=== PATIENT | female | born 1960 | race Caucasian/White ===

== ENCOUNTER 2017-12-02 11:07 | Emergency (ER) | payer OTHER ==
[~2017-12-02] VITALS: Ht 154.9 cm; Wt 95.0 kg
[~2017-12-02 11:07] MED LIST: FIORICET 50-301 EACH PO
[2017-12-02 11:39] LABS: HEMATOCRIT 43.5 % (36.0-46.0); HEMOGLOBIN 15.1 G/DL (11.9-15.5); MCH 31.5 PG (29.0-34.0); MCHC 34.7 G/DL (30.0-36.0); MCV 90.8 FL (83-99); PLATELET COUNT 203 K/uL (156-360); RBC DIS.WIDTH-SD 43.4 % (39-53); RED BLOOD COUNT 4.79 M/uL (3.80-5.20); WHITE BLOOD COUNT 5.3 K/uL (4.1-10.2)
[2017-12-02 11:48] LABS: CHLORIDE 102 mEq/L (99-109); POTASSIUM 4.4 mEq/L (3.7-5.4); SODIUM 141 mEq/L (136-147)
[2017-12-02 11:49] LABS: GLUCOSE 98 mg/dL (70-99)
[2017-12-02 11:53] LABS: CREATININE 0.8 mg/dL (0.6-1.3); GFR ESTIMATE (CALCULATED) > 59 mL/min/
[2017-12-02 11:54] LABS: UREA NITROGEN (BUN) 22 mg/dL (9-23)
[2017-12-02 11:59] LABS: TROP-I INTERPRETATION NEGATIVE; TROPONIN-I < 0.01 ng/mL (0.0-0.30)
[2017-12-02 12:39] LABS: ALBUMIN 4.2 g/dL (3.2-4.8)
[2017-12-02 12:43] LABS: TOTAL BILIRUBIN 0.4 mg/dL (0.0-1.0)
[2017-12-02 12:44] LABS: ALKALINE PHOSPHATASE 80 IU/L (3-129)
[2017-12-02 12:47] LABS: AST (GOT) 18 IU/L (2-34); DIRECT BILIRUBIN 0.2 mg/dL (0.0-0.3)
[2017-12-02 12:48] LABS: ALT (GPT) 21 IU/L (3-49); LIPASE 51 U/L (1.0-51.0)
[2017-12-02 14:33] LABS: TROP-I INTERPRETATION NEGATIVE; TROPONIN-I < 0.01 ng/mL (0.0-0.30)
[2017-12-02] MEDS ORDERED: MOTRIN600 MG PO (15:17)
[2017-12-02] MEDS ORDERED: SKELAXIN800 MG PO (15:18)
[2017-12-02 15:46] VITALS: BP 132/791
== END 2017-12-02 15:50 | disposition home or self-care (01) ==
LOC: EME 11:07
PROVIDERS: Physician Assistant
DX: R07.89 Other chest pain (principal); Z73.3 Stress, not elsewhere classified; F41.9 Anxiety disorder, unspecified; Z87.891 Personal history of nicotine dependence
CPT/HCPCS: 71046; 71275; 80048; 80076; 83690; 84484; 85027; 93005; 99281; 99284; J1885; J2060